=== PATIENT | male | born 1985 | race American Indian/Alaskan Native ===

== ENCOUNTER 2018-08-02 09:50 | Emergency (ER) | payer BC ==
[2018-08-02 10:10] VITALS: BP 122/53
--- NOTE | 2018-08-02 10:58 | Emergency Department Report ---
<DUY HENSON - Last Filed: 08/02/18 10:58> ED Abdominal Pain HPI - General Chief Complaint: Abdominal Pain Stated Complaint: STOMACH PAIN Time Seen by Provider: 08/02/18 10:15 Source: patient Mode of arrival: Ambulatory Limitations: No Limitations - Related Data Previous Rx's Medication Instructions Recorded Last Taken Type Dicyclomine [Bentyl] 10 mg PO QID #15 capsule 08/02/18 Unknown Rx Docusate Sodium [Colace] 100 mg PO BID #30 capsule 08/02/18 Unknown Rx Allergies Allergy/AdvReac Type Severity Reaction Status Date / Time No Known Allergies Allergy Verified 08/02/18 10:10 ED Past Medical Hx - Past Medical History Previous Medical History?: No - Surgical History Past Surgical History?: No - Social History Smoking Status: Current Every Day Smoker Substance Use Type: Marijuana - Medications Home Medications: Home Medications Medication Instructions Recorded Confirmed Last Taken Type Dicyclomine [Bentyl] 10 mg PO QID #15 capsule 08/02/18 Unknown Rx Docusate Sodium [Colace] 100 mg PO BID #30 capsule 08/02/18 Unknown Rx ED Physical Exam - General Limitations: No Limitations ED Disposition Clinical Impression: Constipation Qualifiers: Constipation type: slow transit constipation Qualified Code(s): K59.01 - Slow transit constipation Disposition: - TO HOME OR SELFCARE Condition: Stable Instructions: Constipation (ED), High Fiber Diet (ED) Additional Instructions: Please take one capful of MiraLAX daily for the next 5 days Referrals: AURORA MIR DO [Primary Care Provider] - 3-5 Days <TABITHA ALAS - Last Filed: 08/02/18 11:10> ED Abdominal Pain HPI - History of Present Illness Initial Comments: Patient is a 33-year-old male who states for the past 2 weeks he's had off and on abdominal crampiness. Patient states that he will feel sensation he needs to have a bowel movement and that he may have diarrhea however only solid stool is coming out and he states his normal amount. Patient has some mild nausea with no vomiting patient denies any fevers chills. Patient is pain-free at this time and states that it occurs randomly and is not associated with food drink or activity. MD Complaint: abdominal pain ED Review of Systems ROS: Stated complaint: STOMACH PAIN Other details as noted in HPI Comment: All other systems reviewed and negative ED Physical Exam - General General appearance: alert, in no apparent distress - Head Head exam: Present: atraumatic, normocephalic - Eye Eye exam: Present: normal appearance - ENT ENT exam: Present: mucous membranes moist - Neck Neck exam: Present: normal inspection - Respiratory Respiratory exam: Present: normal lung sounds bilaterally. Absent: respiratory distress, wheezes, rales - Cardiovascular Cardiovascular Exam: Present: regular rate, normal rhythm, normal heart sounds. Absent: bradycardia, tachycardia, systolic murmur, diastolic murmur, rubs, gallop - GI/Abdominal GI/Abdominal exam: Present: soft, normal bowel sounds. Absent: distended, tenderness, guarding, rebound, rigid - Rectal Rectal exam: Present: deferred - Extremities Exam Extremities exam: Present: normal inspection - Back Exam Back exam: Present: normal inspection - Neurological Exam Neurological exam: Present: alert, oriented X3 - Psychiatric Psychiatric exam: Present: normal affect, normal mood - Skin Skin exam: Present: warm, dry, intact, normal color. Absent: rash ED Course Vital Signs 08/02/18 10:05 Temperature 98.3 F Pulse Rate 83 Respiratory 16 Rate Blood Pressure 122/53 O2 Sat by Pulse 100 Oximetry ED Medical Decision Making - Radiology Data Radiology results: image reviewed (x-ray of the abdomen shows some retained fecal matter but there is no evidence of obstruction) - Medical Decision Making Patient be treated for constipation be discharged home. Critical care attestation.: If time is entered above; I have spent that time in minutes in the direct care of this critically ill patient, excluding procedure time. ED Disposition Is pt being admited?: No Does the pt Need Aspirin: No Time of Disposition: 11:10
--- NOTE | 2018-08-02 11:07 | XRay Report ---
ABDOMINAL SERIES: History: Abdominal pain. Erect chest film shows no acute or significant changes involving the heart or lung pierce. There is no evidence of free air beneath the diaphragms. The gas pattern within the abdomen is unremarkable. There is no evidence of bowel dilatation, significant air-fluid levels, or masses. Organ shadows are unremarkable. IMPRESSION: Abdominal series within normal limits.
== END 2018-08-02 11:19 | disposition home or self-care (01) ==
LOC: ED 09:50
DX: K59.01 Slow transit constipation (principal); F17.200 Nicotine dependence, unspecified, uncomplicated; F12.10 Cannabis abuse, uncomplicated
CPT/HCPCS: 74022